=== PATIENT | male | born 1970 | race African-American/Black ===

== ENCOUNTER 2016-08-25 08:44 | Emergency (ER) | payer MEDICAID ==
[~2016-08-25] VITALS: Ht 175.3 cm; Wt 90.7 kg
[2016-08-25 09:33] VITALS: BP 143/92
[2016-08-25] MEDS ORDERED: KETOROLAC TROMETH 60MG/2ML VIAL IM ONE (10:45)
== END 2016-08-25 10:51 | disposition home or self-care (01) ==
LOC: ER 08:49
DX: M65.841 Other synovitis and tenosynovitis, right hand (principal)
CPT/HCPCS: 96372; 99283; J1885

== ENCOUNTER 2017-07-27 21:51 | Inpatient (IN) | payer MEDICAID ==
[~2017-07-27] VITALS: Ht 172.7 cm; Wt 104.0 kg
[2017-07-27 22:48] LABS: Basophils # (auto) 0.1 uL; Basophils % (auto) 1.3 % (0.0-2.0); Eosinophils # (auto) 0.3 uL; Eosinophils % (auto) 3.3 % (0.0-7.0); Hematocrit 41.4 % (41.0-53.0); Hemoglobin 13.6 g/dL (13.5-17.5); Lymphocytes # (auto) 2.3 uL; Lymphocytes % (auto) 25.6 % (10.0-50.0); Mean Corpuscular Hgb Conc. 32.8 g/dL (32.0-36.0); Mean Corpuscular Volume 85.4 fL (80.0-100.0); Monocytes # (auto) 1.1 uL; Monocytes % (auto) 12.2 % (0.0-12.0); Neutrophils # (auto) 5.2 uL; Neutrophils % (auto) 57.6 % (37.0-80.0); Nucleated Red Blood Cells % 0.1 %; Platelet Count (auto) 268 10^3/uL (140-450); Red Blood Cells 4.85 10^6/uL (4.5-5.90); Red Cell Distribution Width 15.1 % (11.8-14.3); White Blood Cell 8.9 10^3/uL (4.4-10.8)
[2017-07-27 22:48] LABS: Urine Bacteria NONE SEEN /hpf (None Seen); Urine Blood Negative /uL (Negative); Urine Mucus FEW (None Seen); Urine Specific Gravity 1.026 (1.001-1.035); Urine WBC 1 /hpf (0 - 3)
[2017-07-27 23:05] LABS: Albumin 3.8 g/dL (3.4-5.0); BUN/Creatinine Ratio 9.6; Calcium 8.5 mg/dL (8.5-10.1); Potassium 3.7 mmol/L (3.5-5.1)
[2017-07-27 23:08] LABS: Bilirubin, Total 0.5 mg/dL (0.2-1.0); Total Protein 8.2 g/dL (6.4-8.2)
[2017-07-28] MEDS ORDERED: NALBUPHINE HCL 10 MG/1ml INJECTION IV ONE (10:30)
[2017-07-28] MEDS ORDERED: metroNIDAZOLE 500MG/100ML 100 ML IV ONE (10:30)
[2017-07-28] MEDS ORDERED: cefTRIAXone 1GM/10ml IVPUSH 10 ML IV ONE ×2 (10:30→12:00)
[2017-07-28] MEDS ORDERED: SODIUM CHLORIDE 0.9% 1,000 ML IV ONE (10:30)
[2017-07-28] MEDS ORDERED: PROMETHAZINE HCL 25 MG/ML 1ML IV PRN ×2 (10:30→12:00)
[2017-07-28 11:38] LABS: Magnesium 2.7 mg/dL (1.6-2.6)
[2017-07-28] MEDS ORDERED: SODIUM CHLORIDE 0.9% 1,000 ML IV SCH (11:51)
[2017-07-28] MEDS ORDERED: MORPHINE SULFATE 10 MG/ML INJ 1ML SDV IV PRN ×2 (12:00→12:15)
[2017-07-28] MEDS ORDERED: ACETAMINOPHEN 500 MG TAB PO PRN (12:00)
[2017-07-28] MEDS ORDERED: TEMAZEPAM 15 MG CAP PO PRN (12:00)
[2017-07-28] MEDS ORDERED: NITROGLYCERIN 0.4 MG SL TAB SL PRN (12:00)
[2017-07-28] MEDS: metroNIDAZOLE 500MG/100ML 100 ML IV SCH ×3 (12:00→23:23)
[2017-07-28] MEDS ORDERED: LORazepam 0.5 MG TAB PO PRN (12:00)
[2017-07-28] MEDS: FAMOTIDINE (10MG/ML) 2ML VL IV SCH ×2 (12:10→23:23)
[2017-07-28] MEDS: SODIUM CHLORIDE 0.9% 1,000 ML IV SCH (17:15)
[2017-07-28 21:00] VITALS: BP 158/96
[2017-07-29] MEDS: SODIUM CHLORIDE 0.9% 1,000 ML IV SCH ×3 (03:15→17:24)
[2017-07-29 05:00] VITALS: BP 154/91
[2017-07-29] MEDS: metroNIDAZOLE 500MG/100ML 100 ML IV SCH ×3 (06:30→17:24)
[2017-07-29 08:00] VITALS: BP 159/91
[2017-07-29] MEDS: HYDROcodone-ACET 5/325MG TAB PO PRN (08:56)
[2017-07-29] MEDS: cefTRIAXone 1GM/10ml IVPUSH 10 ML IV SCH (08:57)
[2017-07-29] MEDS ORDERED: ENOXAPARIN SOD 40 MG/0.4 ML SYRINGE SC SCH (10:00)
[2017-07-29] MEDS ORDERED: MORPHINE SULFATE 10 MG/ML INJ 1ML SDV IV PRN (10:15)
[2017-07-29 12:00] VITALS: BP 159/94
[2017-07-29] MEDS: FAMOTIDINE (10MG/ML) 2ML VL IV SCH (12:32)
[2017-07-29 17:00] VITALS: BP 161/96
[2017-07-29 22:34] VITALS: BP 151/100
[2017-07-30] MEDS: FAMOTIDINE (10MG/ML) 2ML VL IV SCH (00:04)
[2017-07-30] MEDS: metroNIDAZOLE 500MG/100ML 100 ML IV SCH ×5 (00:04→23:41)
[2017-07-30 05:41] VITALS: BP 148/117
[2017-07-30 05:52] LABS: Basophils # (auto) 0.1 uL; Basophils % (auto) 1.9 % (0.0-2.0); Eosinophils # (auto) 0.5 uL; Eosinophils % (auto) 9.8 % (0.0-7.0); Hematocrit 42.4 % (41.0-53.0); Hemoglobin 13.9 g/dL (13.5-17.5); Lymphocytes # (auto) 1.6 uL; Lymphocytes % (auto) 31.2 % (10.0-50.0); Mean Corpuscular Hgb Conc. 32.8 g/dL (32.0-36.0); Mean Corpuscular Volume 85.4 fL (80.0-100.0); Monocytes # (auto) 0.6 uL; Monocytes % (auto) 12.7 % (0.0-12.0); Neutrophils # (auto) 2.2 uL; Neutrophils % (auto) 44.4 % (37.0-80.0); Nucleated Red Blood Cells % 0.2 %; Platelet Count (auto) 283 10^3/uL (140-450); Red Blood Cells 4.96 10^6/uL (4.5-5.90); Red Cell Distribution Width 14.8 % (11.8-14.3)
[2017-07-30 06:05] LABS: Calcium 9.4 mg/dL (8.5-10.1); Potassium 3.7 mmol/L (3.5-5.1)
[2017-07-30 06:07] LABS: BUN/Creatinine Ratio 9.6
[2017-07-30 09:00] VITALS: BP 158/99
[2017-07-30] MEDS: cefTRIAXone 1GM/10ml IVPUSH 10 ML IV SCH (09:33)
[2017-07-30] MEDS: HYDROcodone-ACET 5/325MG TAB PO PRN (09:33)
[2017-07-30] MEDS: SODIUM CHLORIDE 0.9% 1,000 ML IV SCH ×2 (09:34→12:52)
[2017-07-30] MEDS ORDERED: amLODIPine BESYLATE 5 MG TAB PO ONE (10:45)
[2017-07-30] MEDS ORDERED: PANTOPRAZOLE 40 MG TAB PO ONE (10:45)
[2017-07-30 16:41] VITALS: BP 152/113
[2017-07-30 21:58] VITALS: BP 150/104
[2017-07-31] MEDS: SODIUM CHLORIDE 0.9% 1,000 ML IV SCH ×2 (00:02→05:19)
[2017-07-31 04:59] VITALS: BP 156/82
[2017-07-31] MEDS: metroNIDAZOLE 500MG/100ML 100 ML IV SCH ×3 (05:19→18:00)
[2017-07-31 09:09] VITALS: BP 144/83
[2017-07-31] MEDS ORDERED: PANTOPRAZOLE 40 MG TAB PO SCH (10:00)
[2017-07-31] MEDS ORDERED: amLODIPine BESYLATE 5 MG TAB PO SCH (10:00)
[2017-07-31] MEDS: cefTRIAXone 1GM/10ml IVPUSH 10 ML IV SCH (15:28)
[2017-07-31 18:27] VITALS: BP 144/83
== END 2017-07-31 20:30 | disposition home or self-care (01) | DRG 244 ==
LOC: ER 21:51 → TELE 21:52 → TELE-CENTR 07-28 21:04 → CENTRAL 07-29 23:55
PROVIDERS: ADMIT Internal Medicine; ATTEND Internal Medicine
DX: K57.32 Diverticulitis of large intestine without perforation or abscess without bleeding (principal); I10 Essential (primary) hypertension; E66.9 Obesity, unspecified; K44.9 Diaphragmatic hernia without obstruction or gangrene; Z68.34 Body mass index [BMI] 34.0-34.9, adult; Z79.899 Other long term (current) drug therapy; Z82.49 Family history of ischemic heart disease and other diseases of the circulatory system
CPT/HCPCS: 36415; 74176; 80048; 80053; 81001; 83690; 83735; 85025; 93005; 96365; 96375; J3490